=== PATIENT | male | born 1990 | race Caucasian/White ===

== ENCOUNTER 2017-10-12 13:44 | Inpatient (IN) | payer OTHER ==
[~2017-10-12] VITALS: Ht 182.9 cm; Wt 99.9 kg
[~2017-10-12 13:44] MED LIST: PRILOSEC20 MG PO
[2017-10-12 13:56] LABS: BASOPHIL COUNT 0.1 K/uL (0-0.1); EOSINOPHIL (%) 1.2 % (0-5); EOSINOPHIL COUNT 0.2 K/uL (0-0.3); HEMATOCRIT 45.7 % (38.0-50.0); IMMATURE GRANULOCYTE COUNT 0.5 K/uL; INSTRUMENT ABS NEUTROPHIL CT 8.1 K/uL; LYMPHOCYTE COUNT 2.9 K/uL (1.0-2.8); MCH 30.7 PG (29.0-34.0); MCV 92.9 FL (86-99); MEAN PLAT.VOLUME 10.9 uM^3 (9.0-12.4); MONOCYTE (%) 5.9 % (3-12); MONOCYTE COUNT 0.7 K/uL (0-0.8); NEUTROPHIL (%) 65.3 % (45-76); NEUTROPHIL COUNT 8.1 K/uL (1.8-6.4); PLATELET COUNT 264 K/uL (156-360); RBC DIS.WIDTH-CV 13.4 % (11.8-14.6); RBC DIS.WIDTH-SD 45.2 % (39-53); RED BLOOD COUNT 4.92 M/uL (4.00-5.50); WHITE BLOOD COUNT 12.5 K/uL (4.1-10.2)
[2017-10-12 14:02] LABS: PROTHROMBIN TIME 11.1 SEC (10.2-12.9)
[2017-10-12 14:05] LABS: PTT 30.8 SEC (25-37)
[2017-10-12 14:06] LABS: BICARBONATE 16.8 mEq/L (22-26); CARBOXY HGB 2.3 % (0-5); COMMENTS - BLOOD GASES A+C+; DEVICE 980 VENT; FI02 100 %; MECHANICAL RATE 20 resp/min; METHEMOGLOBIN 0.8 % (0-1.5); MODE AC; PCO2 58 mm Hg (35-45); PO2 94 mm Hg (80-100); SITE LR; TOTAL RESP RATE 20 resp/min; pH 7.07 (7.35-7.45)
[2017-10-12 14:06] LABS: AMYLASE 70 IU/L (1-118); CHLORIDE 102 mEq/L (99-109); POTASSIUM 3.7 mEq/L (3.7-5.4); SODIUM 135 mEq/L (136-147)
[2017-10-12 14:07] LABS: GLUCOSE 360 mg/dL (70-99)
[2017-10-12 14:07] LABS: PEEP 8 CM/H20; TIDAL VOLUME 500 ML
[2017-10-12 14:09] LABS: ANION GAP 20 MEQ/L (2-14)
[2017-10-12 14:11] LABS: GFR ESTIMATE (CALCULATED) > 59 mL/min/ (58.99-99999); SERUM ETHYL ALCOHOL < 10 mg/dL
[2017-10-12 14:12] LABS: UREA NITROGEN (BUN) 18 mg/dL (9-23)
[2017-10-12 14:14] LABS: LIPASE 26 U/L (1.0-51.0)
[2017-10-12 14:18] LABS: TROP-I INTERPRETATION NEGATIVE; TROPONIN-I < 0.01 ng/mL (0.0-0.30)
[2017-10-12 14:53] LABS: ADD MIUA? YES; BILIRUBIN NEGATIVE; BLOOD SMALL; COLOR YELLOW ((YELLOW)); GLUCOSE (STRIP) 150; KETONES NEGATIVE; LEUKOCYTES NEGATIVE; NITRITE NEGATIVE; PROTEIN (STRIP) 100; SPECIFIC GRAVITY 1.027 (1.000-1.030); UROBILINOGEN 0.2 MG/DL (0.2-1.0)
[2017-10-12 15:02] LABS: AMPHETAMINE NEGATIVE (500 ng/mL); BACTERIA RARE /HPF; BARBITURATES NEGATIVE (200 ng/mL); BENZODIAZEPINES NEGATIVE (150 ng/mL); COCAINE NEGATIVE (150 ng/mL); EPITHELIAL CELLS RARE /HPF; HYALINE CASTS 0-5 /LPF; INTERNAL CONTROLS VALID? YES; METHADONE NEGATIVE (200 ng/mL); METHAMPHETAMINE NEGATIVE (500 ng/mL); MUCUS 2+ /LPF; OPIATES (MORPHINE) NEGATIVE (100 ng/mL); OXYCODONE NEGATIVE (100 ng/mL); PHENCYCLIDINE NEGATIVE (25 ng/mL); PROPOXYPHENE NEGATIVE (300 ng/mL); THC CANNABINOIDS PRESUMPTIVE POSITIVE (50 ng/mL); TRICYCLIC ANTIDEPRESSANTS NEGATIVE (300 ng/mL); UCUL ADDED? NO; WHITE BLOOD CELLS 0-5 /HPF (0-5)
[2017-10-12 15:03] LABS: ADD MEDTOX COMMENT Y
[2017-10-12 18:48] LABS: BICARBONATE 13.6 mEq/L (22-26); CARBOXY HGB 1.2 % (0-5); METHEMOGLOBIN 1.3 % (0-1.5); PCO2 34 mm Hg (35-45); PO2 209 mm Hg (80-100)
[2017-10-12 18:49] LABS: COMMENTS - BLOOD GASES A+C+; DEVICE 840; FI02 100 %; INSPIRATION TIME 0.8 seconds; MECHANICAL RATE 24 resp/min; MODE AC; PEEP 12 CM/H20; SITE RR; TIDAL VOLUME 500 ML; TOTAL RESP RATE 29 resp/min; pH 7.21 (7.35-7.45)
[2017-10-12 19:48] VITALS: BP 132/106
[2017-10-12 20:00] VITALS: BP 109/88; BP 132/106
[2017-10-12 20:27] LABS: BASE EXCESS -14.9 mEq/L (-3 to +3); BICARBONATE 12.8 mEq/L (22-26); METHEMOGLOBIN 1.6 % (0-1.5); PCO2 36 mm Hg (35-45)
[2017-10-12 20:28] LABS: DEVICE VENT; PO2 89 mm Hg (80-100); SITE RR; pH 7.16 (7.35-7.45)
[2017-10-12 20:29] LABS: COMMENTS - BLOOD GASES C+; FI02 100 %; MECHANICAL RATE 24 resp/min; MODE A/C; PEEP 12 CM/H20; TIDAL VOLUME 500 ML; TOTAL RESP RATE 24 resp/min
[2017-10-12 20:30] VITALS: BP 133/98
[2017-10-12 21:00] VITALS: BP 107/69
[2017-10-12 21:39] LABS: METH RESISTANT S AUREUS PCR NEGATIVE (NEGATIVE)
[2017-10-12 21:42] LABS: PROBE CHECK PASS; SPECIMEN PROCESSING CONTROL PASS
== END 2017-10-12 21:37 | DRG 917 ==
LOC: EME 13:44 → EDOF 16:52 → ENRESERV 16:54 → 4WEST 19:40
PROVIDERS: Emergency Medicine; Specialist
PROC: 5A1935Z Respiratory Ventilation, Less than 24 Consecutive Hours (ICD-10-PCS; principal; 2017-10-12)
PROC: 5A12012 Performance of Cardiac Output, Single, Manual (ICD-10-PCS; 2017-10-12)
DX: T50.901A Poisoning by unspecified drugs, medicaments and biological substances, accidental (unintentional), initial encounter (principal); I46.8 Cardiac arrest due to other underlying condition; G93.6 Cerebral edema; J69.0 Pneumonitis due to inhalation of food and vomit; R40.20 Unspecified coma; G93.1 Anoxic brain damage, not elsewhere classified; E87.4 Mixed disorder of acid-base balance; Y92.511 Restaurant or cafe as the place of occurrence of the external cause
CPT/HCPCS: 36600; 70450; 71010; 71250; 74176; 80048; 81003; 82150; 82803; 83605; 83690; 84484; 84999; 85025; 85610; 85730; 86850; 86870; 86900; 86901; 87040; 87070; 87205; 87641; 93005; 94002; 99281; 99285; G0480; J2270; J2543; J2704; J7030; J7050